=== PATIENT | male | born 1960 | race Two or more races ===

== ENCOUNTER 2022-01-03 11:17 | Outpatient (CLI) | payer OTHER ==
[~2022-01-03] VITALS: Ht 190.5 cm; Wt 136.1 kg
== END 2022-01-03 11:18 | disposition home or self-care (01) ==
LOC: LAB 11:17
PROVIDERS: ATTEND Orthopaedic Surgery
DX: Z76.89 Persons encountering health services in other specified circumstances (principal); I49.9 Cardiac arrhythmia, unspecified; I10 Essential (primary) hypertension; D64.9 Anemia, unspecified; E88.9 Metabolic disorder, unspecified; D68.8 Other specified coagulation defects; N39.0 Urinary tract infection, site not specified; A49.02 Methicillin resistant Staphylococcus aureus infection, unspecified site; E11.9 Type 2 diabetes mellitus without complications

== ENCOUNTER 2022-01-15 04:10 | Day surgery (SDC) | payer OTHER ==
[~2022-01-15] VITALS: Ht 190.5 cm; Wt 140.6 kg
[~2022-01-15 04:10] MED LIST: LOTREL 5-20 MG1 CAP PO; PROAIR RESPICL90 MCG IH
== END 2022-01-15 10:50 | disposition home or self-care (01) ==
LOC: CIR.AMB 04:10
PROVIDERS: ATTEND Orthopaedic Surgery
DX: M23.222 Derangement of posterior horn of medial meniscus due to old tear or injury, left knee (principal); M22.42 Chondromalacia patellae, left knee; M12.262 Villonodular synovitis (pigmented), left knee; I10 Essential (primary) hypertension; J45.909 Unspecified asthma, uncomplicated; N40.0 Benign prostatic hyperplasia without lower urinary tract symptoms; M19.90 Unspecified osteoarthritis, unspecified site; E66.9 Obesity, unspecified